=== PATIENT | male | born 1975 | race Caucasian/White ===

== ENCOUNTER → 2017-03-15 | Outpatient (CLI) | payer BC ==
--- NOTE | 2017-03-15 19:03 | ECHOF ---
Referral Reason:R07.9 Chest pain MEASUREMENTS -------- HEIGHT: 172.7 cm WEIGHT: 93.0 kg BP: 144/99 RVIDd: 3.6 cm (< 3.3) IVSd: 1.4 cm (0.6 - 1.1) LVIDd: 4.2 cm (3.9 - 5.3) LVPWd: 1.5 cm (0.6 - 1.1) IVSs: 1.4 cm LVIDs: 3.2 cm LVPWs: 1.7 cm LAESV Index (A-L): 28.44 ml/m Ao Diam: 3.9 cm (2.0 - 3.7) AV Cusp: 1.9 cm (1.5 - 2.6) LA Diam: 3.9 cm (2.7 - 3.8) MV EXCURSION: 19.436 mm (> 18.000) MV EF SLOPE: 99 mm/s (70 - 150) EPSS: 1.1 cm MV E Star: 0.93 m/s MV DecT: 295 ms MV A Star: 0.52 m/s MV E/A Ratio: 1.78 RAP: 5.00 mmHg RVSP: 22.27 mmHg FINDINGS -------- Sinus rhythm. This was a technically good study. The left ventricular size is normal. There is mild concentric left ventricular hypertrophy. Overall left ventricular systolic function is normal with, an EF between 60 - 65 %. The right ventricle is normal in size and function. Normal LA size by volume 22+/-6 ml/m2. The right atrium is normal in size. The aortic valve is trileaflet, and appears structurally normal. No aortic stenosis or regurgitation. The mitral valve is normal. There is trace mitral regurgitation. Trace tricuspid regurgitation present. Right ventricular systolic pressure is normal at < 35 mmHg. There is no evidence of pulmonary hypertension. Trace/mild (physiologic) pulmonic regurgitation. The aortic root size is normal. Normal inferior vena cava with normal inspiratory collapse consistent with estimated right atrial pressure of 5 mmHg. The pericardium is normal. There is no pericardial effusion. CONCLUSIONS -------- 1. Sinus rhythm. 2. Right ventricular systolic pressure is normal at < 35 mmHg. 3. There is no evidence of pulmonary hypertension. 4. Trace/mild (physiologic) pulmonic regurgitation. 5. The aortic root size is normal. 6. There is no pericardial effusion. 7. This was a technically good study. 8. The left ventricular size is normal. 9. There is mild concentric left ventricular hypertrophy. 10. Overall left ventricular systolic function is normal with, an EF between 60 - 65 %. 11. Normal LA size by volume 22+/-6 ml/m2. 12. The aortic valve is trileaflet, and appears structurally normal. No aortic stenosis or regurgitation. 13. There is trace mitral regurgitation. 14. Trace tricuspid regurgitation present. TONNAGE COMPILATION CLERK: Kumar Elizondo RDCS
== END | disposition home or self-care (01) ==
LOC: RADECHMAIN 15:38
PROVIDERS: ATTEND Family Medicine
DX: I08.1 Rheumatic disorders of both mitral and tricuspid valves (principal)
CPT/HCPCS: 36415; 80053; 80061; 84443; 85025; 93306

== ENCOUNTER 2019-03-06 16:19 | Inpatient (IN) | payer BC ==
[2019-03-06] MEDS ORDERED: ACETAMINOPHEN TAB 325 MG TAB PO STA (17:55)
--- NOTE | 2019-03-06 18:23 | ED ---
ENT HPI - General Source: patient Mode of arrival: ambulatory Limitations: no limitations <Mari aE Alaniz - Last Filed: 03/06/19 23:04> <Elvie Queen - Last Filed: 03/10/19 16:13> - General Chief complaint: ENT Stated complaint: Fever, ENT Time Seen by Provider: 03/06/19 17:55 - History of Present Illness Initial comments: 43-year-old male with positive. Past nuchal history presents emergency department for evaluation of sore throat ear pain. Patient states he has had a sore throat since Saturday, he states began at work. Patient states later that night he developed a fever. Patient states that it is painful to swallow. Patient denies any compressive symptoms. Patient states he does not have a cou gh. Patient states he has no real nasal congestion. Patient denies any headache or neck stiffness photophobia. Patient states he does have ear pain bilaterally with right being greater than the left. Patient states when he drinks anything warm increases the pain in the right ear. Patient states that his fever has been greater than 102 for the past 2 days he has been unable to control it with strict medications every 4-6 hours including regimen of a gram of Tylenol and 800 of ibuprofen. Patient states last dose of ibuprofen was at 4:00 PM. Patient denies abdominal pain vomiting diarrhea. Patient denies any other associated complaints. Patient states he is vaccinated denies history of splenectomy or HIV. She states she did present to an outpatient urgent care facility where he is prescribed Augmentin on and has taken a total of 3 doses of Augmentin. Remaining ROS (-). Upon (Maria E Alaniz) - Related Data Previous Rx's Medication Instructions Recorded Amoxic-Pot Clav 875-125Mg 1 tab PO Q12H #10 tab 03/09/19 [Augmentin 875-125] Naproxen [Naprosyn] 250 mg PO BID #10 tab 03/09/19 predniSONE 0 mg PO DIRECTED #10 tab 03/09/19 Allergies Allergy/AdvReac Type Severity Reaction Status Date / Time No Known Allergies Allergy Verified 03/06/19 21:42 Review of Systems ROS Other: All systems not noted in ROS Statement are negative. <Maria E Alaniz - Last Filed: 03/06/19 23:04> ROS Other: All systems not noted in ROS Statement are negative. <Elvie Queen - Last Filed: 03/10/19 16:13> ROS Statement: Those systems with pertinent positive or pertinent negative responses have been documented in the HPI. Past Medical History Past Medical History: No Reported History History of Any Multi-Drug Resistant Organisms: None Reported Past Surgical History: No Surgical Hx Reported Past Psychological History: No Psychological Hx Reported Smoking Status: Current every day smoker Past Alcohol Use History: Daily Past Drug Use History: None Reported <Maria E Alaniz - Last Filed: 03/06/19 23:04> General Exam Limitations: no limitations <Maria E Alaniz - Last Filed: 03/06/19 23:04> - General Exam Comments Initial Comments: General: The patient is awake and alert, in no distress Eye: +3 mm pupils are equal, round and reactive to light, extra-ocular movements are intact. No nystagmus. There is normal conjunctiva bilaterally. No signs of icterus. No photophobia Ears, nose, mouth and throat: There are moist mucous membranes and no oral lesions. Oropharynx was erythematous there is was mild tonsillar enlargement with white plaqie like exudates no lesions Uvula midline, enlarged erythematous with exudates. Tympanic membranes are not erythematous or is no effusions bulging or retraction. No tenderness to palpation of the mastoid. No anterior cervical lymphadenopathy. Rhinorrhea, clear and bilateral nares. No tripoding, no drooling. Neck: The neck is supple, there is no tenderness or JVD. No nuchal rigidity Cardiovascular: There is a regular rate and rhythm. No murmur, rub or gallop is appreciated. Respiratory: Lungs are clear to auscultation, respirations are non-labored, breath sounds are equal. No wheezes, stridor, rales, or rhonchi. No retractions or abdominal breathing. Gastrointestinal: Soft, non-distended, non-tender abdomen without masses or organomegaly noted. There is no rebound or guarding present. Bowel sounds are unremarkable. Musculoskeletal: Normal ROM, no tenderness. Strength 5/5. Sensation intact. Radial pulses equal bilaterally 2+. Neurological: A&O x 3. CN II-XII intact grossly, There are no obvious motor or sensory deficits. Coordination appears grossly intact. Speech appears normal, no muffling. Skin: Skin is warm and dry and no rashes or lesions are noted. No extremity edema Psychiatric: Cooperative (Maria E Alaniz) Course Vital Signs 03/06/19 03/06/19 03/06/19 16:35 20:46 23:00 Temperature 101.5 F H 101.9 F H 98.0 F Pulse Rate 84 81 Pulse Rate [ 75 Supine Pulse Oximetery] Respiratory 18 20 18 Rate Blood Pressure 148/87 119/65 Blood Pressure 137/68 [Right Arm Supine] O2 Sat by Pulse 99 97 96 Oximetry Medical Decision Making - Lab Data Result diagrams: 03/06/19 18:30 03/06/19 18:30 <Maria E Alaniz - Last Filed: 03/06/19 23:04> - Lab Data Result diagrams: 03/08/19 07:11 03/06/19 18:30 <Elvie Queen - Last Filed: 03/10/19 16:13> - Medical Decision Making 43-year-old male presents emergency department for evaluation of sore throat, high fevers at home. Patient states he has had extreme pain with swallowing for the past 2 days. Patient states that he also has had ear pain. Patient states she has taken a total of 3 doses of Augmentin. Patient states despite antipyretic therapy at home he has had elevated temperature. Patient denies any neck pain or stiffness. Patient is no nuchal irritation signs and examination. Patient does have extensive tonsillar and uvular exudates. He has evidence of uvulitis on PE. Rapid strep testing, Heterophile testing negative. Influenza negative. Chest x-ray clear. Patient's E stays revealed mild leukocytosis. CT of soft tissues neck revealed lymphadenopathy however no apparent fluid collections consistent with abscess. Airway is maintained. Patient has no tripoding or drooling and is tolerating secretions of physical examination. Patient was evaluated in person by attending provider Dr. Queen who recommends admission with IV abx and ENT evaluation. Patient does not appear overtly toxic or septic at this time. Patient was started on Zosyn per admitting provider recommendations, ENT on consult. No further instruction. Patient agreeable with admission. Transferred to floor in stable condition. (Maria E Alaniz) I was available for consultation in the emergency department. The history and physical exam were done by the midlevel provider. I was consulted for this patients care. I reviewed the case with the midlevel provider and based on their presentation of the patient, I agree with the assessment, medical decision making and plan of care as documented. I evaluated the patient myself. Due to outpatient treatment failure, I recommended hospital admission. I discussed the case with Dr. Ladd who accepted admission. Chart was dictated using [employer] dictation software. Attempts were made to correct any dictation errors however some typographical errors may persist. (Elvie Queen) - Lab Data Lab Results 03/06/19 03/06/19 03/06/19 Range/Units 18:30 18:30 18:30 WBC 12.9 H (3.8-10.6) k/uL RBC 4.43 (4.30-5.90) m/uL Hgb 14.1 (13.0-17.5) gm/dL Hct 43.3 (39.0-53.0) % MCV 97.8 (80.0-100.0) fL MCH 31.8 (25.0-35.0) pg MCHC 32.5 (31.0-37.0) g/dL RDW 13.0 (11.5-15.5) % Plt Count 164 (150-450) k/uL Neutrophils % 86 % Lymphocytes % 6 % Monocytes % 4 % Eosinophils % 1 % Basophils % 1 % Neutrophils # 11.0 H (1.3-7.7) k/uL Lymphocytes # 0.8 L (1.0-4.8) k/uL Monocytes # 0.6 (0-1.0) k/uL Eosinophils # 0.1 (0-0.7) k/uL Basophils # 0.1 (0-0.2) k/uL Macrocytosis Sodium 139 (137-145) mmol/L Potassium 4.4 (3.5-5.1) mmol/L Chloride 103 (98-107) mmol/L Carbon Dioxide 24 (22-30) mmol/L Anion Gap 12 mmol/L BUN 10 (9-20) mg/dL Creatinine 0.92 (0.66-1.25) mg/dL Est GFR (CKD-EPI)AfAm >90 (>60 ml/min/1.73 sqM) Est GFR (CKD-EPI)NonAf >90 (>60 ml/min/1.73 sqM) Glucose 102 H (74-99) mg/dL Plasma Lactic Acid Jeffrey (0.7-2.0) mmol/L Calcium 9.4 (8.4-10.2) mg/dL Total Bilirubin 0.7 (0.2-1.3) mg/dL AST 30 (17-59) U/L ALT 42 (21-72) U/L Alkaline Phosphatase 62 (38-126) U/L Total Protein 7.7 (6.3-8.2) g/dL Albumin 4.7 (3.5-5.0) g/dL Heterophile Antibody Negative (Negative) Influenza Type A RNA (Not Detectd) Influenza Type B (PCR) (Not Detectd) Group A Strep Rapid (Negative) 03/06/19 03/06/19 03/08/19 Range/Units 18:30 18:30 07:11 WBC 7.2 (3.8-10.6) k/uL RBC 3.96 L (4.30-5.90) m/uL Hgb 12.7 L (13.0-17.5) gm/dL Hct 40.4 (39.0-53.0) % MCV 101.9 H (80.0-100.0) fL MCH 32.0 (25.0-35.0) pg MCHC 31.4 (31.0-37.0) g/dL RDW 12.8 (11.5-15.5) % Plt Count 191 (150-450) k/uL Neutrophils % 84 % Lymphocytes % 12 % Monocytes % 3 % Eosinophils % 0 % Basophils % 0 % Neutrophils # 6.1 (1.3-7.7) k/uL Lymphocytes # 0.9 L (1.0-4.8) k/uL Monocytes # 0.2 (0-1.0) k/uL Eosinophils # 0.0 (0-0.7) k/uL Basophils # 0.0 (0-0.2) k/uL Macrocytosis Slight Sodium (137-145) mmol/L Potassium (3.5-5.1) mmol/L Chloride (98-107) mmol/L Carbon Dioxide (22-30) mmol/L Anion Gap mmol/L BUN (9-20) mg/dL Creatinine (0.66-1.25) mg/dL Est GFR (CKD-EPI)AfAm (>60 ml/min/1.73 sqM) Est GFR (CKD-EPI)NonAf (>60 ml/min/1.73 sqM) Glucose (74-99) mg/dL Plasma Lactic Acid Jeffrey 0.8 (0.7-2.0) mmol/L Calcium (8.4-10.2) mg/dL Total Bilirubin (0.2-1.3) mg/dL AST (17-59) U/L ALT (21-72) U/L Alkaline Phosphatase (38-126) U/L Total Protein (6.3-8.2) g/dL Albumin (3.5-5.0) g/dL Heterophile Antibody (Negative) Influenza Type A RNA Not Detected (Not Detectd) Influenza Type B (PCR) Not Detected (Not Detectd) Group A Strep Rapid Negative (Negative) Disposition Is patient prescribed a controlled substance at d/c from ED?: No Time of Disposition: 21:19 Decision to Admit Reason: Admit from EC Decision Date: 03/06/19 Decision Time: 21:19 <Maria E Alaniz - Last Filed: 03/06/19 23:04> <Elvie Queen - Last Filed: 03/10/19 16:13> Clinical Impression: Pharyngitis, Uvulitis, Fever Disposition: ADMITTED IP TO THIS HOSP Condition: Stable
[2019-03-06 18:41] LABS: Basophils # (A) 0.1 k/uL (0-0.2); Basophils % (A) 1 %; Eosinophils # (A) 0.1 k/uL (0-0.7); Eosinophils % (A) 1 %; HCT 43.3 % (39.0-53.0); HGB 14.1 gm/dL (13.0-17.5); Lymphocytes # (A) 0.8 k/uL (1.0-4.8); Lymphocytes % (A) 6 %; MCH 31.8 pg (25.0-35.0); MCHC 32.5 g/dL (31.0-37.0); MCV 97.8 fL (80.0-100.0); Mean Platelet Volume 8.1; Monocytes # (A) 0.6 k/uL (0-1.0); Monocytes % (A) 4 %; Neutrophils % (A) 86 %; Platelet Count 164 k/uL (150-450); RBC 4.43 m/uL (4.30-5.90); WBC 12.9 k/uL (3.8-10.6)
[2019-03-06 18:51] LABS: ALT 42 U/L (21-72); AST 30 U/L (17-59); African American GFR (CKD) >90 (>60 ml/min/1.73 sqM); Albumin 4.7 g/dL (3.5-5.0); Alkaline Phosphatase 62 U/L (38-126); Anion Gap 12 mmol/L; Blood Urea Nitrogen 10 mg/dL (9-20); Calcium 9.4 mg/dL (8.4-10.2); Carbon Dioxide 24 mmol/L (22-30); Chloride 103 mmol/L (98-107); Glucose 102 mg/dL (74-99); Potassium 4.4 mmol/L (3.5-5.1); Sodium 139 mmol/L (137-145); Total Bilirubin 0.7 mg/dL (0.2-1.3); Total Protein 7.7 g/dL (6.3-8.2)
--- NOTE | 2019-03-06 19:33 | XR ---
EXAMINATION TYPE: XR chest 2V DATE OF EXAM: 03/06/2019 COMPARISON: 05/19/2014 HISTORY: Fever and sore throat TECHNIQUE: Frontal and lateral views of the chest are obtained. FINDINGS: Heart and mediastinum are normal. Lungs are clear. Diaphragm is normal. Bony thorax appear s normal. IMPRESSION: Normal chest. No change.
--- NOTE | 2019-03-06 19:37 | CT ---
EXAMINATION TYPE: CT soft tissue neck w con DATE OF EXAM: 03/06/2019 7:26 PM COMPARISON: None HISTORY: Neck swelling, pain and fever CT DLP: 322.2 mGycm Automated exposure control for dose reduction was used. CONTRAST: CT scan of the neck is performed following with IV Contrast, patient injected with 100 mL of Isovue 3 00. Axial images are obtained, coronal and sagittal reformatted images are reviewed. FINDINGS: There is normal branching pattern of the great vessels on the aortic arch. Thyroid gland appears norm al. Visualized trachea appears normal. Epiglottis is normal. The tongue appears normal. The tonsils and adenoids are within normal limits. The parotid glands are symmetric. Submandibular sa livary glands are symmetric. There are multiple enlarged anterior triangle cervical lymph nodes that measure up to 1.4 cm in greatest dimension. There is normal contrast opacification of the carotid art eries and jugular veins and vertebral arteries. I see no pathologic fluid collection. There are scatt ered posterior triangle cervical lymph nodes that measure up to 9 mm in greatest dimension. There is no evidence of an abscess. IMPRESSION: There are nonspecific anterior and posterior triangle bilateral cervical lymph nodes. No evidence of an abscess.
[2019-03-06] MEDS ORDERED: DEXAMETHASONE SOD PHOSPHATE 4 MG/ML 1 ML VIAL IV STA (19:40)
[2019-03-06] MEDS ORDERED: SODIUM CHLORIDE 0.9% 1,000 ML IV ONE (20:12)
[2019-03-06] MEDS ORDERED: PIPERACILLIN-TAZOBACTAM 3.375 GM in SODIUM CHLORIDE 0.9% 100 ML IVPB STA (21:18)
[2019-03-06] MEDS ORDERED: NYSTATIN 100,000 UNIT/ML SUSP 500,000 UNIT/5 ML CUP PO STA (21:20)
[2019-03-06] MEDS ORDERED: ACETAMINOPHEN TAB 325 MG TAB PO PRN (21:43)
[2019-03-06] MEDS ORDERED: NALOXONE 0.4 MG/ML 1 ML VIAL IV PRN (21:43)
[2019-03-06] MEDS: KETOROLAC 30 MG/ML 1 ML VIAL IVP PRN (23:10)
[2019-03-06] MEDS: SODIUM CHLORIDE 0.9% 1,000 ML IV SCH (23:23)
[2019-03-07] MEDS: KETOROLAC 30 MG/ML 1 ML VIAL IVP PRN ×2 (08:19→15:09)
[2019-03-07] MEDS: SODIUM CHLORIDE 0.9% 1,000 ML IV SCH ×2 (08:21→16:19)
[2019-03-07] MEDS ORDERED: NYSTATIN 100,000 UNIT/ML SUSP 500,000 UNIT/5 ML CUP PO SCH (09:00)
[2019-03-07] MEDS ORDERED: PIPERACILLIN-TAZOBACTAM 3.375 GM in SODIUM CHLORIDE 0.9% 100 ML IVPB SCH (09:00)
[2019-03-07] MEDS: PIPERACILLIN-TAZOBACTAM 3.375 GM in SODIUM CHLORIDE 0.9% 100 ML IVPB SCH ×2 (10:34→15:08)
--- NOTE | 2019-03-07 15:49 | P.HPIM ---
History of Present Illness H&P Date: 03/07/19 Chief Complaint: Sort throat History of presenting complaint: This is a pleasant 43-year-old patient of Dr. Jennings. 4 days ago started off with a sore throat. Progress to get worse. Started having high fevers chills. That started having symptoms and blockage feeling and pain in both the ears. Started fighting get difficult to swallow. Decided to come in. In the ER p harynx was found to be rather inflamed with exudates. I ordered IV Zosyn and IV Solu-Medrol. Patient otherwise in good health. His other active. Denies any chronic medical conditions. No unusual sexual practices. Feeling better since receiving the IV Zosyn and Solu-Medrol. ENT was consulted. Review of systems: GEN.: Fever and chills EYES: None HEENT: As above NECK: None RESPIRATORY: None CARDIOVASCULAR: None GASTROINTESTINAL: None GENITOURINARY: None MUSCULOSKELETAL: None LYMPHATICS: None HEMATOLOGICAL: None PSYCHIATRY: None NEUROLOGICAL: None Past medical history to include: Diverticulosis Social history: Smokes a pack a day for close to 28 years. Drinks 2 beers at night. Lives by himself. 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 Family history: Possible heart disease Physical examination: VITAL SIGNS: 101.5, 84, 18, 148/87, 99% room air-upon presentation GENERAL: Average built, sitting up, comfortable. EYES: Pupils equal. Conjunctiva normal. HEENT: External appearance of nose and ears normal, pharynx is inflamed with enlarged uvula and crowding, with white exudates. NECK: JVD not raised; masses not palpable. HEART: First and second heart sounds are normal; no edema. LUNGS: Respiratory rate normal; clear to auscultation. ABDOMEN: Soft, nontender, liver spleen not palpable, no masses palpable. PSYCH: Alert and oriented x3; mood and affect normal. NEUROLOGICAL: Cranial nerves grossly intact; no facial asymmetry, power and sensation grossly intact. LYMPHATICS: Submandibular lymph nodes palpable INVESTIGATIONS, reviewed in the clinical context: White count 12.9 hemoglobin 14.1 platelets 164 Potassium 4.4 creatinine 0.9 to Influenza A and B- group A strep rapid negative Heterophil antibody negative Assessment: -Acute severe exudative pharyngitis, likely bacterial causing sepsis -Acute severe odynophagia from above -Chronic nicotine dependence patient cigarette smoker -Colonic diverticulosis, asymptomatic Plan: Patient started and IV Zosyn. IV Solu-Medrol. Told to avoid extremes of fluid temperatures that is very cold or hot. Also to do saltwater warm gargle. ENT was consulted. Care was discussed with the patient. Questions were answered. Advised against smoking. Lovenox for DVT prophylaxis. Past Medical History Past Medical History: No Reported History Additional Past Medical History / Comment(s): Patient states he had a CT that showed diverticulosis History of Any Multi-Drug Resistant Organisms: None Reported Past Surgical History: No Surgical Hx Reported Past Anesthesia/Blood Transfusion Reactions: No Reported Reaction Past Psychological History: No Psychological Hx Reported Smoking Status: Current every day smoker Past Alcohol Use History: Daily Past Drug Use History: None Reported - Past Family History Father Family Medical History: No Reported History Additional Family Medical History / Comment(s): Possibly heart stents Mother Family Medical History: Diabetes Mellitus, Hypertension Brother(s) Family Medical History: Myocardial Infarction ([place]) Additional Family Medical History / Comment(s): Had heart attack at 39 Medications and Allergies Home Medications Medication Instructions Recorded Confirmed Type Amoxic-Pot Clav 875-125Mg 1 tab PO Q12H 03/06/19 03/06/19 History [Augmentin 875-125] Ibuprofen [Motrin] 600 mg PO Q8HR PRN 03/06/19 03/06/19 History Allergies Allergy/AdvReac Type Severity Reaction Status Date / Time No Known Allergies Allergy Verified 03/06/19 21:42 Physical Exam Vitals: Vital Signs Temp Pulse Pulse Resp BP BP Pulse Ox 03/07/19 05:00 96.9 F L 56 L 18 143/81 100 03/07/19 00:00 18 03/06/19 23:00 98.0 F 75 18 137/68 96 03/06/19 20:46 101.9 F H 81 20 119/65 97 03/06/19 16:35 101.5 F H 84 18 148/87 99 Intake and Output 03/06/19 03/07/19 03/07/19 22:59 06:59 14:59 Intake Total 2300 Balance 2300 Intake: Amount of Fluid Infused ( 1800 ml) Oral 500 Other: # Voids 1 Weight 83.915 kg Results CBC & Chem 7: 03/06/19 18:30 03/06/19 18:30 Labs: Abnormal Lab Results - Last 24 Hours (Table) 03/06/19 03/06/19 Range/Units 18:30 18:30 WBC 12.9 H (3.8-10.6) k/uL Neutrophils # 11.0 H (1.3-7.7) k/uL Lymphocytes # 0.8 L (1.0-4.8) k/uL Glucose 102 H (74-99) mg/dL Microbiology - Last 24 Hours (Table) 03/06/19 18:30 Group A Strep Throat Culture - Preliminary Throat Thrombosis Risk Factor Assmnt - Choose All That Apply Any of the Below Risk Factors Present?: Yes Each Factor Represents 1 point: Age 41-60 years, Obesity (BMI >25) Thrombosis Risk Factor Assessment Total Risk Factor Score: 2 Thrombosis Risk Factor Assessment Level: Low Risk
[2019-03-07] MEDS: ENOXAPARIN 40 MG/0.4 ML SYRINGE SQ SCH (16:18)
[2019-03-07] MEDS ORDERED: predniSONE 20 MG TAB PO STA (23:44)
[2019-03-08] MEDS: PIPERACILLIN-TAZOBACTAM 3.375 GM in SODIUM CHLORIDE 0.9% 100 ML IVPB SCH ×4 (00:27→23:29)
[2019-03-08] MEDS: SODIUM CHLORIDE 0.9% 1,000 ML IV SCH ×3 (05:28→23:34)
[2019-03-08 07:42] LABS: Basophils % (A) 0 %; Eosinophils % (A) 0 %; HCT 40.4 % (39.0-53.0); HGB 12.7 gm/dL (13.0-17.5); Lymphocytes # (A) 0.9 k/uL (1.0-4.8); Lymphocytes % (A) 12 %; MCHC 31.4 g/dL (31.0-37.0); MCV 101.9 fL (80.0-100.0); Macrocytosis Slight; Monocytes # (A) 0.2 k/uL (0-1.0); Monocytes % (A) 3 %; Neutrophils # (A) 6.1 k/uL (1.3-7.7); Neutrophils % (A) 84 %; Platelet Count 191 k/uL (150-450); RBC 3.96 m/uL (4.30-5.90); RDW 12.8 % (11.5-15.5); WBC 7.2 k/uL (3.8-10.6)
[2019-03-08] MEDS ORDERED: DEXAMETHASONE SOD PHOSPHATE 10 MG/ML 1 ML VIAL IV ONE (08:00)
--- NOTE | 2019-03-08 08:37 | CONS ---
CONSULTATION DATE OF ADMISSION: 03/06/2019 DATE OF CONSULTATION: 03/07/2019 REASON FOR CONSULTATION: Uvulitis, pharyngitis, tonsillar exudate. HISTORY OF PRESENT ILLNESS: This patient is a very pleasant 43-year-old male who was admitted via the [facility] Emergency Room to the hospital for definitive care. The patient states that approximately 2-3 days prior to his admission he developed a moderate sore throat. The pain was on both sides and became progressively worse. Eventually the patient had difficulty swallowing and the pain radiated into both ears. He was seen by someone at one of the urgent care centers and was placed on Augmentin tablets 875 mg b.i.d. for 10 days. The patient states that although he had significant difficulty swallowing the tablets, he was able to swallow them, but they seemed to make no difference in his symptoms. His symptoms continued to progress and subsequently he presented at the [facility] Emergency Room and was seen by an ER physician. He was diagnosed with uvulitis, pharyngitis and tonsillar exudate. The patient was given 3 grams of Zosyn and 10 mg of dexamethasone, both given IV and he was subsequently admitted for further treatment and consultation. At the time that I saw the patient he was in no acute distress and was feeling much better after 24 hours of antibiotics. PAST MEDICAL HISTORY: Reveals patient has no known allergies to medications. He is not currently on any medications. He states he smokes approximately 1 pack plus of cigarettes per day and was advised to quit for obvious health reasons. There is no history of asthma, diabetes mellitus or hypertension. REVIEW OF SYSTEMS: Review of systems is noncontributory. PHYSICAL EXAMINATION: This patient is a 43-year-old male who is alert, cooperative and well-oriented to time and place. HEENT examination: Patient is normocephalic. Tympanic membranes are normal. Middle ear spaces are free of any fluid or infection. Pupils equal, round, and reactive to light and accommodation. Conjunctivae are clear. Intranasal examination reveals moderate to severe septal deviation to the right with compensatory hypertrophy of the inferior turbinates bilaterally. There is a moderate amount of clear mucus on the mucous membranes and draining down the posterior pharynx. Examination of the oropharynx at this time reveals 2 to 3+ tonsillar hypertrophy with no evidence of tonsillar debris in the tonsillar crypts at this time. In addition, there is no evidence of any significant tonsillar exudate. The uvula is in the midline and appears to be normal. Most of the soft tissue swelling of the soft palate has resolved. Palpation of the neck reveals no evidence of lymphadenopathy or neck masses. Cranial nerves 2 through 12 and the remainder of the head and neck exam are within normal limits. CHEST/CARDIOVASCULAR: Both lung villalobos are clear to percussion and auscultation. The patient is in regular sinus rhythm. S1 and S2 are present without evidence of any murmurs, S3s or S4s. Peripheral pulses are bilaterally symmetrical and within normal limits. The remainder of the physical exam is essentially unremarkable. IMPRESSION: Exudative tonsillitis with uvular involvement, no airway obstruction or distress. PLAN: The patient will be continued on Zosyn 3 g q.8 hours. The patient states that this is the first episode of tonsillitis that he has ever had in his life and therefore he is not a candidate for tonsillectomy at this time. The hospital course was essentially unremarkable and the patient responded quite well to antibiotic and fluid therapy. PLAN: The patient can be discharged at any time by the primary physician. I have advised him to complete the 10 day course of Augmentin tablets that he already has present. In addition to this, there is no restriction in his activity, work or diet. I have cautioned the patient that it will take several more days for his symptoms to completely resolve but he should still complete the 10 day course of antibiotics. It is normal for exudative tonsillitis to involve the soft palate and the uvula. The patient can be discharged in the a.m. and I will not need to see him for followup in my office at this time. I have advised nursing staff to make sure that the patient gets his dose of Zosyn in the morning along with 10 mg of Decadron IV prior to being discharged. I want to take this opportunity to thank you for allowing me to assist you in the care of your patient. If I can be of any further assistance, please feel free to call my office. MMODL / IJN: [id number] / MTDD
[2019-03-08] MEDS: ENOXAPARIN 40 MG/0.4 ML SYRINGE SQ SCH (08:39)
--- NOTE | 2019-03-08 16:46 | P.PN ---
Progress Note - Text Progress Note Date: 03/08/19 Chief Complaint: Sore throat Interval history: This is a pleasant 43-year-old patient of Dr. Jennings. 4 days ago started off with a sore throat. Progress to get worse. Started having high fevers chills. That started having symptoms and blockage feeling and pain in both the ears. Started fighting get difficult to swallow. Decided to come in. In the ER pharynx was found to be rather inflamed with exudates. I ordered IV Zosyn and IV Solu-Medrol. Patient otherwise in good health. His other active. Denies any chronic medical conditions. No unusual sexual practices. Feeling better since receiving the IV Zosyn and Solu-Medrol. ENT was consulted. Today-throat feels a bit better. Able to tolerate some diet. Still painful. No fever no chills. Getting IV Zosyn. Review of systems: Was done for constitutional, cardiovascular, GI, pulmonary. relevant finding as above Active Medications Acetaminophen (Tylenol Tab) 650 mg PO Q6HR PRN PRN Reason: Mild Pain or Fever > 100.5 Enoxaparin Sodium (Lovenox) 40 mg SQ DAILY [facility] Last Admin: 03/08/19 08:39 Dose: Not Given Documented by: Sodium Chloride (Saline 0.9%) 1,000 mls @ 100 mls/hr IV .Q10H [facility] Last Admin: 03/08/19 13:38 Dose: Not Given Documented by: Piperacillin Sod/Tazobactam (Sod 3.375 gm/ Sodium Chloride) 100 mls @ 25 mls/hr IVPB Q8HR [facility] Last Admin: 03/08/19 08:38 Dose: 25 mls/hr Documented by: Ketorolac Tromethamine (Toradol) 30 mg IVP Q6HR PRN PRN Reason: Moderate Pain Stop: 03/11/19 21:44 Last Admin: 03/07/19 15:09 Dose: 30 mg Documented by: Naloxone HCl (Narcan) 0.2 mg IV Q2M PRN PRN Reason: Opioid Reversal Physical examination: VITAL SIGNS: Afebrile, 74, 20, 138/86, 97% room air GENERAL: Sitting up in a chair. More comfortable. EYES: Pupils equal. Conjunctiva normal. HEENT: External appearance of nose and ears normal, pharynx is a bit less inflamed with enlarged uvula and crowding, with white exudates a bit less. NECK: JVD not raised; masses not palpable. HEART: First and second heart sounds are normal; no edema. LUNGS: Respiratory rate normal; clear to auscultation. ABDOMEN: Soft, nontender, liver spleen not palpable, no masses palpable. PSYCH: Alert and oriented x3; mood and affect normal. INVESTIGATIONS, reviewed in the clinical context: White count 7.2 Admission testing: White count 12.9 hemoglobin 14.1 platelets 164 Potassium 4.4 creatinine 0.9 to Influenza A and B- group A strep rapid negative Heterophil antibody negative Assessment: -Acute severe exudative pharyngitis, likely bacterial causing sepsis, improving -Acute severe odynophagia from above -Chronic nicotine dependence patient cigarette smoker -Colonic diverticulosis, asymptomatic Plan: Patient is improving. To like to give another 24 hours of IV antibiotics. Based on the clinical findings. Discussed with the patient. Told him to do warm water with salt gargles. She will be discharged tomorrow morning. Another 24 hours of steroids to
[2019-03-08] MEDS: methylPREDNISolone SOD SUCCI 40 MG/ML 1 ML VIAL IV SCH ×2 (16:59→23:33)
[2019-03-09] MEDS: methylPREDNISolone SOD SUCCI 40 MG/ML 1 ML VIAL IV SCH (08:04)
[2019-03-09] MEDS: PIPERACILLIN-TAZOBACTAM 3.375 GM in SODIUM CHLORIDE 0.9% 100 ML IVPB SCH (08:04)
[2019-03-09] MEDS: ENOXAPARIN 40 MG/0.4 ML SYRINGE SQ SCH (08:05)
[2019-03-09] MEDS: SODIUM CHLORIDE 0.9% 1,000 ML IV SCH (08:06)
[2019-03-09 12:47] VITALS: BP 125/75; PULSE 51; RESP 16; TEMP 98.4
--- NOTE | 2019-03-09 23:21 | P.DS ---
Providers Date of admission: 03/09/19 10:24 Expected date of discharge: 03/09/19 Attending physician: Nikos Ladd Consults: 03/06/19 21:44 Consult Physician Routine Consulting Provider: Tuan Hart Consult Reason/Comments: pharyngitis, uvulitis Do you want consulting provider notified?: Yes, Notify in am Primary care physician: Nicholas Jennings [facility] Course: Chief Complaint: Sore throat Hospital course: This is a pleasant 43-year-old patient of Dr. Jennings. 4 days ago started off with a sore throat. Progress to get worse. Started having high fevers chills. That started having symptoms and blockage feeling and pain in both the ears. Started fighting get difficult to swallow. Decided to come in. In the ER pharynx was found to be rather inflamed with exudates. I ordered IV Zosyn and IV Solu-Medrol. Patient otherwise in good health. His other active. Denies any chronic medical conditions. No unusual sexual practices. Feeling better since receiving the IV Zosyn and Solu-Medrol. ENT was consulted. Admitted with superior to have severe pharyngitis. Responded well to the above treatment. Doing much better the day of discharge. Greatly improved. Care was discussed with the patient today questions were answered. Consultation: Dr. Tuan Hart from ENT Physical examination: VITAL SIGNS: Afebrile, 51, 16, 1 25 x 75, 98% room air GENERAL: Sitting up in a chair. More comfortable. EYES: Pupils equal. Conjunctiva normal. HEENT: Pharynx appears greatly improved. Redness much decreased. Exudates all disappeared.. NECK: JVD not raised; masses not palpable. HEART: First and second heart sounds are normal; no edema. LUNGS: Respiratory rate normal; clear to auscultation. ABDOMEN: Soft, nontender, liver spleen not palpable, no masses palpable. PSYCH: Alert and oriented x3; mood and affect normal. INVESTIGATIONS, reviewed in the clinical context: White count 7.2 Admission testing: White count 12.9 hemoglobin 14.1 platelets 164 Potassium 4.4 creatinine 0.9 to Influenza A and B- group A strep rapid negative Heterophil antibody negative Discharge diagnosis: -Acute severe exudative pharyngitis, likely bacterial causing sepsis, POA -Acute severe odynophagia from above -Chronic nicotine dependence patient cigarette smoker -Colonic diverticulosis, asymptomatic Plan: Discharged home Patient Condition at Discharge: Stable Plan - Discharge Summary New Discharge Prescriptions: New Naproxen [Naprosyn] 250 mg PO BID #10 tab predniSONE 0 mg PO DIRECTED #10 tab Continue Amoxic-Pot Clav 875-125Mg [Augmentin 875-125] 1 tab PO Q12H #10 tab Discontinued Ibuprofen [Motrin] 600 mg PO Q8HR PRN PRN Reason: Pain Discharge Medication List Amoxic-Pot Clav 875-125Mg [Augmentin 875-125] 1 tab PO Q12H #10 tab 03/09/19 [Rx] Naproxen [Naprosyn] 250 mg PO BID #10 tab 03/09/19 [Rx] predniSONE 0 mg PO DIRECTED #10 tab 03/09/19 [Rx] Follow up Appointment(s)/Referral(s): Nicholas Jennings DO [Primary Care Provider] - 03/12/19 10:30 am Patient Instructions/Handouts: Tonsillitis (DC) Activity/Diet/Wound Care/Special Instructions: activity as tolerated soft diet as tolerated warm salt water gargle PRN Discharge Disposition: HOME SELF-CARE
== END 2019-03-09 14:01 | disposition home or self-care (01) | DRG 872 ==
LOC: EC 16:19 → 4MS4W 21:18 → OBSVTOIN 03-09 10:24
PROVIDERS: ADMIT Hospitalist; ATTEND Hospitalist
DX: A41.9 Sepsis, unspecified organism (principal); R13.10 Dysphagia, unspecified; K57.30 Diverticulosis of large intestine without perforation or abscess without bleeding; J02.9 Acute pharyngitis, unspecified; F17.210 Nicotine dependence, cigarettes, uncomplicated; Z82.49 Family history of ischemic heart disease and other diseases of the circulatory system; Z83.3 Family history of diabetes mellitus
CPT/HCPCS: 36415; 70491; 71046; 80053; 83605; 85025; 86308; 87040; 87081; 87430; 87502; 96361; 96365; 96375; 99285

== ENCOUNTER 2021-02-16 18:32 | Observation (INO) | payer BC ==
[2021-02-16 19:21] LABS: Basophils % (A) 0 %; Eosinophils # (A) 0.2 k/uL (0-0.7); Eosinophils % (A) 3 %; HCT 39.6 % (39.0-53.0); HGB 13.7 gm/dL (13.0-17.5); Lymphocytes # (A) 1.9 k/uL (1.0-4.8); Lymphocytes % (A) 23 %; MCH 33.1 pg (25.0-35.0); MCHC 34.7 g/dL (31.0-37.0); MCV 95.6 fL (80.0-100.0); Mean Platelet Volume 9.8; Monocytes # (A) 0.4 k/uL (0-1.0); Monocytes % (A) 5 %; Neutrophils # (A) 5.6 k/uL (1.3-7.7); Neutrophils % (A) 68 %; Platelet Count 172 k/uL (150-450); RBC 4.15 m/uL (4.30-5.90); RDW 12.5 % (11.5-15.5); WBC 8.2 k/uL (3.8-10.6)
--- NOTE | 2021-02-16 19:29 | ED ---
General Adult HPI - General Chief complaint: Chest Pain Stated complaint: Chest Pain Time Seen by Provider: 02/16/21 18:35 Source: patient, RN notes reviewed, old records reviewed Mode of arrival: ambulatory Limitations: no limitations - History of Present Illness Initial comments: This is a 45-year-old male who presents emergency Department complaining of chest pain for 3 days. Patient states the left-sided chest radiates to his upper left back. Patient states he is a heavy smoker has high cholesterol might have high blood pressure but is not currently treated for. Patient also states he has a younger brother who is 42 and he has had 2 heart attacks. Patient states that there is some shortness of breath but no diaphoretic episode no nausea. Patient denies any lightheadedness or dizziness. Patient denies headache patient denies numbness weakness. Patient denies abdominal pain patient denies nausea vomiting or diarrhea. - Related Data Home Medications Medication Instructions Recorded Confirmed Atorvastatin Calcium [Lipitor] 40 mg PO HS 02/16/21 02/16/21 Fenofibrate [Lofibra] 160 mg PO HS 02/16/21 02/16/21 Omeprazole 20 mg PO HS 02/16/21 02/16/21 Allergies Allergy/AdvReac Type Severity Reaction Status Date / Time No Known Allergies Allergy Verified 02/16/21 19:43 Review of Systems ROS Statement: Those systems with pertinent positive or pertinent negative responses have been documented in the HPI. ROS Other: All systems not noted in ROS Statement are negative. Past Medical History Past Medical History: No Reported History Additional Past Medical History / Comment(s): Patient states he had a CT that showed diverticulosis History of Any Multi-Drug Resistant Organisms: None Reported Past Surgical History: No Surgical Hx Reported Past Anesthesia/Blood Transfusion Reactions: No Reported Reaction Past Psychological History: No Psychological Hx Reported Past Alcohol Use History: Daily Past Drug Use History: None Reported - Past Family History Father Family Medical History: No Reported History Additional Family Medical History / Comment(s): Possibly heart stents Mother Family Medical History: Diabetes Mellitus, Hypertension Brother(s) Family Medical History: Myocardial Infarction ([place]) Additional Family Medical History / Comment(s): Had heart attack at 39 General Exam - General Exam Comments Initial Comments: GENERAL: Patient is well-developed and well-nourished. Patient is nontoxic and well- hydrated and is in mild distress. ENT: Neck is soft and supple. No significant lymphadenopathy is noted. Oropharynx is clear. Moist mucous membranes. Neck has full range of motion without eliciting any pain. EYES: The sclera were anicteric and conjunctiva were pink and moist. Extraocular movements were intact and pupils were equal round and reactive to light. Eyelids were unremarkable. PULMONARY: Unlabored respirations. Good breath sounds bilaterally. No audible rales rhonchi or wheezing was noted. CARDIOVASCULAR: There is a regular rate and rhythm without any murmurs gallops or rubs. ABDOMEN: Soft and nontender with normal bowel sounds. SKIN: Skin is clear with no lesions or rashes and otherwise unremarkable. NEUROLOGIC: Patient is alert and oriented x3. Cranial nerves II through XII are grossly intact. Motor and sensory are also intact. Normal speech, volume and content. Symmetrical smile. MUSCULOSKELETAL: Normal extremities with adequate strength and full range of motion. LYMPHATICS: No significant lymphadenopathy is noted PSYCHIATRIC: Normal psychiatric evaluation. Limitations: no limitations Course Vital Signs 02/16/21 02/16/21 02/16/21 18:37 20:00 20:08 Temperature 98.1 F Pulse Rate 77 72 75 Respiratory 18 18 18 Rate Blood Pressure 173/98 157/95 147/96 O2 Sat by Pulse 97 95 96 Oximetry Medical Decision Making - Medical Decision Making EKG shows sinus rhythm at 74 bpm MI interval 210 QRS is 94 QT interval 416 QTC is 461 per patient's EKG shows no ST segment elevation or depression. Chest x-ray shows no acute abnormality Patient took nitroglycerin he stated that the chest pressure was much improved. I spoke with history of his possible sacral to admit the patient admitted the patient I wrote admitting orders. - Lab Data Result diagrams: 02/16/21 19:12 02/16/21 19:12 Lab Results 02/16/21 02/16/21 02/16/21 Range/Units 19:12 19:12 19:12 WBC 8.2 (3.8-10.6) k/uL RBC 4.15 L (4.30-5.90) m/uL Hgb 13.7 (13.0-17.5) gm/dL Hct 39.6 (39.0-53.0) % MCV 95.6 (80.0-100.0) fL MCH 33.1 (25.0-35.0) pg MCHC 34.7 (31.0-37.0) g/dL RDW 12.5 (11.5-15.5) % Plt Count 172 (150-450) k/uL MPV 9.8 Neutrophils % 68 % Lymphocytes % 23 % Monocytes % 5 % Eosinophils % 3 % Basophils % 0 % Neutrophils # 5.6 (1.3-7.7) k/uL Lymphocytes # 1.9 (1.0-4.8) k/uL Monocytes # 0.4 (0-1.0) k/uL Eosinophils # 0.2 (0-0.7) k/uL Basophils # 0.0 (0-0.2) k/uL PT 10.4 (9.0-12.0) sec INR 1.0 (<1.2) APTT 25.1 (22.0-30.0) sec Sodium 139 (137-145) mmol/L Potassium 4.1 (3.5-5.1) mmol/L Chloride 106 (98-107) mmol/L Carbon Dioxide 21 L (22-30) mmol/L Anion Gap 12 mmol/L BUN 15 (9-20) mg/dL Creatinine 0.97 (0.66-1.25) mg/dL Est GFR (CKD-EPI)AfAm >90 (>60 ml/min/1.73 sqM) Est GFR (CKD-EPI)NonAf >90 (>60 ml/min/1.73 sqM) Glucose 128 H (74-99) mg/dL Calcium 9.9 (8.4-10.2) mg/dL Magnesium 2.0 (1.6-2.3) mg/dL Total Bilirubin 0.5 (0.2-1.3) mg/dL AST 56 (17-59) U/L ALT 104 H (4-49) U/L Alkaline Phosphatase 44 (38-126) U/L Troponin I (0.000-0.034) ng/mL Total Protein 7.8 (6.3-8.2) g/dL Albumin 5.0 (3.5-5.0) g/dL Coronavirus (PCR) (Not Detectd) 02/16/21 02/16/21 Range/Units 19:12 19:12 WBC (3.8-10.6) k/uL RBC (4.30-5.90) m/uL Hgb (13.0-17.5) gm/dL Hct (39.0-53.0) % MCV (80.0-100.0) fL MCH (25.0-35.0) pg MCHC (31.0-37.0) g/dL RDW (11.5-15.5) % Plt Count (150-450) k/uL MPV Neutrophils % % Lymphocytes % % Monocytes % % Eosinophils % % Basophils % % Neutrophils # (1.3-7.7) k/uL Lymphocytes # (1.0-4.8) k/uL Monocytes # (0-1.0) k/uL Eosinophils # (0-0.7) k/uL Basophils # (0-0.2) k/uL PT (9.0-12.0) sec INR (<1.2) APTT (22.0-30.0) sec Sodium (137-145) mmol/L Potassium (3.5-5.1) mmol/L Chloride (98-107) mmol/L Carbon Dioxide (22-30) mmol/L Anion Gap mmol/L BUN (9-20) mg/dL Creatinine (0.66-1.25) mg/dL Est GFR (CKD-EPI)AfAm (>60 ml/min/1.73 sqM) Est GFR (CKD-EPI)NonAf (>60 ml/min/1.73 sqM) Glucose (74-99) mg/dL Calcium (8.4-10.2) mg/dL Magnesium (1.6-2.3) mg/dL Total Bilirubin (0.2-1.3) mg/dL AST (17-59) U/L ALT (4-49) U/L Alkaline Phosphatase (38-126) U/L Troponin I <0.012 (0.000-0.034) ng/mL Total Protein (6.3-8.2) g/dL Albumin (3.5-5.0) g/dL Coronavirus (PCR) Not Detected (Not Detectd) Critical Care Time Critical Care Time: Yes Total Critical Care Time: 35 Disposition Clinical Impression: Unstable angina pectoris Disposition: ADMITTED IP TO THIS HOSP Referrals: Nicholas Jennings DO [Primary Care Provider] - 1-2 days Time of Disposition: 19:28
[2021-02-16 19:30] LABS: ALT 104 U/L (4-49); AST 56 U/L (17-59); African American GFR (CKD) >90 (>60 ml/min/1.73 sqM); Alkaline Phosphatase 44 U/L (38-126); Anion Gap 12 mmol/L; Blood Urea Nitrogen 15 mg/dL (9-20); Calcium 9.9 mg/dL (8.4-10.2); Carbon Dioxide 21 mmol/L (22-30); Chloride 106 mmol/L (98-107); Glucose 128 mg/dL (74-99); Non-African American GFR(CKD) >90 (>60 ml/min/1.73 sqM); Partial Thromboplastin Time 25.1 sec (22.0-30.0); Potassium 4.1 mmol/L (3.5-5.1); Prothrombin Time 10.4 sec (9.0-12.0); Sodium 139 mmol/L (137-145); Total Bilirubin 0.5 mg/dL (0.2-1.3); Total Protein 7.8 g/dL (6.3-8.2)
[2021-02-16] MEDS ORDERED: NITROGLYCERIN OINT 1 INCH/GM PACKET TOPICAL STA (19:31)
[2021-02-16] MEDS ORDERED: ASPIRIN 81 MG PO STA (19:31)
[2021-02-16] MEDS ORDERED: NITROGLYCERIN SL TABS 0.4 MG TAB SUBLINGUAL STA (19:31)
--- NOTE | 2021-02-16 19:55 | XR ---
EXAMINATION: XR chest 2V DATE AND TIME: 02/16/2021 7:24 PM CLINICAL INDICATION: PHH; Chest Pain TECHNIQUE: Departmental protocol COMPARISON: 03/06/2019 FINDINGS: The lungs are clear. The pleural spaces are negative. The cardiac silhouette is not enlarged. The remainder of the mediastinal silhouette is unremarkable. The skeletal structures and soft tissues are negative for acute findings. IMPRESSION: No definite acute radiographic process.
[2021-02-16] MEDS ORDERED: HEPARIN SODIUM 1,000 UN/ML (10ML VL) IV ONE (20:25)
[2021-02-16] MEDS ORDERED: NITROGLYCERIN SL TABS 0.4 MG TAB SUBLINGUAL PRN (20:26)
[2021-02-16] MEDS ORDERED: HEPARIN SOD,PORK IN 0.45% NACL 25,000 UNIT in 0.45% NACL 1 250ML.BAG IV SCH (20:30)
[2021-02-16] MEDS: NITROGLYCERIN OINT 1 INCH/GM PACKET TOPICAL SCH (23:55)
[2021-02-17] MEDS: NITROGLYCERIN OINT 1 INCH/GM PACKET TOPICAL SCH (05:43)
[2021-02-17] MEDS ORDERED: ASPIRIN 325 MG TAB PO SCH (09:00)
[2021-02-17] MEDS ORDERED: ASPIRIN 81 MG PO SCH (09:00)
--- NOTE | 2021-02-17 11:21 | ECHOF ---
Referral Reason:LV function MEASUREMENTS -------- HEIGHT: 175.3 cm WEIGHT: 94.8 kg BP: 116/61 RVIDd: 3.3 cm (< 3.3) IVSd: 1.1 cm (0.6 - 1.1) LVIDd: 4.7 cm (3.9 - 5.3) LVPWd: 1.2 cm (0.6 - 1.1) IVSs: 1.6 cm LVIDs: 3.0 cm LVPWs: 1.8 cm LA Diam: 3.4 cm (2.7 - 3.8) LAESV Index (A-L): 24.11 ml/m Ao Diam: 3.6 cm (2.0 - 3.7) AV Cusp: 2.2 cm (1.5 - 2.6) MV EXCURSION: 15.618 mm (> 18.000) MV EF SLOPE: 117 mm/s (70 - 150) EPSS: 0.4 cm MV E Star: 1.04 m/s MV DecT: 187 ms MV A Star: 0.77 m/s MV E/A Ratio: 1.34 RAP: 5.00 mmHg RVSP: 24.03 mmHg FINDINGS -------- Sinus rhythm. This was a technically good study. The left ventricular size is normal. There is borderline concentric left ventricular hypertrophy. Overall left ventricular systolic function is normal with, an EF between 60 - 65 %. The right ventricle is mildly enlarged. Normal LA size by volume 22+/-6 ml/m2. The right atrium is normal in size. Interatrial and interventricular septum intact. The aortic valve is trileaflet, and appears structurally normal. No aortic stenosis or regurgitation. The mitral valve is normal. Mild tricuspid regurgitation present. Right ventricular systolic pressure is normal at < 35 mmHg. Trace/mild (physiologic) pulmonic regurgitation. The aortic root size is normal. Normal inferior vena cava with normal inspiratory collapse consistent with estimated right atrial pre ssure of 5 mmHg. There is no pericardial effusion. CONCLUSIONS -------- 1. The left ventricular size is normal. 2. There is borderline concentric left ventricular hypertrophy. 3. Overall left ventricular systolic function is normal with, an EF between 60 - 65 %. 4. The right ventricle is mildly enlarged. 5. Normal LA size by volume 22+/-6 ml/m2. 6. The aortic valve is trileaflet, and appears structurally normal. No aortic stenosis or regurgitati on. 7. Mild tricuspid regurgitation present. 8. Trace/mild (physiologic) pulmonic regurgitation. 9. There is no pericardial effusion. HORTICULTURE SUPERVISOR: Nisreen Cordon RDCS
--- NOTE | 2021-02-17 11:46 | P.CRDCN ---
History of Present Illness History of present illness: HISTORY OF PRESENTING ILLNESS This is a pleasant 45-year-old male past medical history significant for hypertension, hyperlipidemia, daily alcohol use, chronic nicotine dependence. 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 We have been asked to see in consultation for chest pain. Patient is seen and examined at bedside. He states 3 days ago he was at a conference in [place]. He developed left sided chest pain and left sided back pain. He rates the pain 4/10, describes it as a pressure, occasionally has sharp pain intermittently. He denies exertional pain. He states the pain has come and go. He has had this pain before at that time he underwent an echocardiogram with his PCP and was told that was normal, however, this time it is worse an decided to present to the emergency department. He denies associated nausea, shortness of breath, diaphoresis, palpitations, weakness, lightheadedness, syncope. He denies symptoms of orthopnea or PND. Aggravating factors to his chest are palpation to the left chest. He does state that sublinqual nitro helped with the pain. He denies history of ID, Stroke, coronary artery disease. He does drink about 2 beers per day. He smokes 1 PPD. His family history includes his brother has had two MIs with stents placed, first at the age of 42. His grandfather also had an ID with stents placed. He states his blood pressure is high when he goes to doctor's office, needs to be checked twice, and usually decreases. DIAGNOSTICS EKG reveals sinus rhythm, HR 74, no significant ST-T wave abnormalities Telemetry tracings indicate sinus mechanism Chest xray no acute cardiopulmonary process Laboratory reviewed, troponin negative 3, sodium 139, potassium 4.1, BUN 15, serum creatinine 0.9, COVID-19 Negative Echocardiogram revealed an EF of 6060 percent, RV is mildly enlarged, mild tricuspid regurgitation REVIEW OF SYSTEMS At the time of my exam: CONSTITUTIONAL: Denies fever or chills. CARDIOVASCULAR: +chest pain, Denies shortness of breath, orthopnea, PND or palpitations. RESPIRATORY: Denies cough. GASTROINTESTINAL: Denies abdominal pain, diarrhea, constipation, nausea or vomiting. MUSCULOSKELETAL: +back pain NEUROLOGIC: Denies numbness, tingling, headacbe or weakness. ENDOCRINE: Denies fatigue, weight change, polydipsia or polyurina. GENITOURINARY: Denies burning, hematuria or urgency with micturation. HEMATOLOGIC: Denies history of anemia or bleeding. PHYSICAL EXAMINATION Blood pressure 123/80 heart rate 56 afebrile and maintaining oxygen saturation on room air. CONSTITUTIONAL: No apparent distress. HEENT: Head is normocephalic. Pupils are equal, round. Sclerae anicteric. Mucous membranes of the mouth are moist. No JVD. No carotid bruit. CHEST EXAMINATION: Lungs are clear to auscultation. There is chest wall tende rness is noted on palpation to left chest HEART EXAMINATION: Regular rate and rhythm. S1, S2 heard. No murmurs, gallops or rub. ABDOMEN: Soft, nontender. Positive bowel sounds. EXTREMITIES: 2+ peripheral pulses, no lower extremity edema and no calf tenderness. SKIN: warm dry NEUROLOGIC EXAMINATION: Patient is awake, alert and oriented x3. ASSESSMENT Chest pain, atypical acute coronary syndrome has been ruled out Hypertension Hyperlipidemia Family history of heart disease Chronic nicotine dependence PLAN An acute coronary event has been ruled out with no EKG evidence of ischemia and negative cardiac enzymes. 2D Echo obtained and reviewed Perform stress echo test to assess for stress induced cardiac ischemia. If abnormal will consider coronary angiography. Lipid panel pending Continue statin If stress test with no acute findings, ok to discharge patient from cardiology perspective Patient can follow up outpatient with Dr. Ha Smoking cessation discussed and highly recommended. Thank you kindly for this consultation. Nurse Practitioner note has been reviewed, I agree with a documented findings and plan of care. Patient was seen and examined. Past Medical History Past Medical History: Hyperlipidemia, Hypertension Additional Past Medical History / Comment(s): Patient states he had a CT that showed diverticulosis History of Any Multi-Drug Resistant Organisms: None Reported Past Surgical History: No Surgical Hx Reported Past Anesthesia/Blood Transfusion Reactions: No Reported Reaction Past Psychological History: No Psychological Hx Reported Smoking Status: Current every day smoker, Heavy tobacco smoker Past Alcohol Use History: Daily Additional Past Alcohol Use History / Comment(s): 2 BEERS Past Drug Use History: None Reported - Past Family History Father Family Medical History: No Reported History Additional Family Medical History / Comment(s): Possibly heart stents Mother Family Medical History: Diabetes Mellitus, Hypertension Brother(s) Family Medical History: Myocardial Infarction ([place]) Additional Family Medical History / Comment(s): Had heart attack at 39 Medications and Allergies Home Medications Medication Instructions Recorded Confirmed Type Atorvastatin Calcium [Lipitor] 40 mg PO HS 02/16/21 02/16/21 History Fenofibrate [Lofibra] 160 mg PO HS 02/16/21 02/16/21 History Omeprazole 20 mg PO HS 02/16/21 02/16/21 History Allergies Allergy/AdvReac Type Severity Reaction Status Date / Time No Known Allergies Allergy Verified 02/16/21 19:43 Physical Exam Vitals: Vital Signs Temp Pulse Pulse Resp BP BP Pulse Ox 02/17/21 04:00 98.2 F 56 L 17 123/80 98 02/17/21 02:00 55 L 02/17/21 00:00 98.5 F 66 18 141/86 98 02/16/21 23:10 98.1 F 62 18 143/91 99 02/16/21 21:54 67 18 143/87 97 02/16/21 21:00 73 20 138/86 98 02/16/21 20:08 75 18 147/96 96 02/16/21 20:00 72 18 157/95 95 02/16/21 18:37 98.1 F 77 18 173/98 97 Intake and Output 02/16/21 02/17/21 02/17/21 22:59 06:59 14:59 Intake Total 40 58.333 Balance 40 58.333 Intake: Intake, IV Titration 40 58.333 Amount Heparin Sod,Pork in 0.45% 40 58.333 NaCl 25,000 unit In 0.45 % NaCl 1 250ml.bag @ 9. 381 UNITS/KG/HR 10 mls/hr IV .Q24H [facility] Rx#: [id number] Other: Voiding Method Urinal # Voids 1 Weight 106.594 kg 95.1 kg Results 02/16/21 19:12 02/16/21 19:12 Cardiac Enzymes 02/16/21 02/16/21 02/16/21 Range/Units 19:12 19:12 23:30 AST 56 (17-59) U/L Troponin I <0.012 <0.012 (0.000-0.034) ng/mL 02/17/21 Range/Units 02:36 AST (17-59) U/L Troponin I <0.012 (0.000-0.034) ng/mL Coagulation 02/16/21 02/17/21 Range/Units 19:12 02:36 PT 10.4 (9.0-12.0) sec APTT 25.1 32.9 H (22.0-30.0) sec CBC 02/16/21 Range/Units 19:12 WBC 8.2 (3.8-10.6) k/uL RBC 4.15 L (4.30-5.90) m/uL Hgb 13.7 (13.0-17.5) gm/dL Hct 39.6 (39.0-53.0) % Plt Count 172 (150-450) k/uL Comprehensive Metabolic Panel 02/16/21 Range/Units 19:12 Sodium 139 (137-145) mmol/L Potassium 4.1 (3.5-5.1) mmol/L Chloride 106 (98-107) mmol/L Carbon Dioxide 21 L (22-30) mmol/L BUN 15 (9-20) mg/dL Creatinine 0.97 (0.66-1.25) mg/dL Glucose 128 H (74-99) mg/dL Calcium 9.9 (8.4-10.2) mg/dL AST 56 (17-59) U/L ALT 104 H (4-49) U/L Alkaline Phosphatase 44 (38-126) U/L Total Protein 7.8 (6.3-8.2) g/dL Albumin 5.0 (3.5-5.0) g/dL Current Medications Generic Name Dose Route Start Last Admin Trade Name Freq PRN Reason Stop Dose Admin Aspirin 325 mg 02/17/21 09:00 Aspirin 325 Mg Tab PO DAILY [facility] Heparin Sodium/Sodium Chloride 250 mls @ 10 mls/hr 02/16/21 20:30 02/17/21 03:41 25,000 unit/ Sodium Chloride IV 12.38 units/kg/hr .Q24H [facility] 13.196 mls/hr Titration Protocol 9.381 UNITS/KG/HR Nitroglycerin 1 inch 02/17/21 00:00 02/17/21 05:43 Nitroglycerin Oint 1 Inch/Gm Packet TOPICAL 1 inch Q6HR [facility] Administration Nitroglycerin 0.4 mg 02/16/21 20:26 Nitroglycerin Sl Tabs 0.4 Mg Tab SUBLINGUAL Q5M PRN Chest Pain Intake and Output 09/02/17/21 02/17/21 22:59 06:59 14:59 Intake Total 40 58.333 Balance 40 58.333 Intake: Intake, IV Titration 40 58.333 Amount Heparin Sod,Pork in 0.45% 40 58.333 NaCl 25,000 unit In 0.45 % NaCl 1 250ml.bag @ 9. 381 UNITS/KG/HR 10 mls/hr IV .Q24H [facility] Rx#: [id number] Other: Voiding Method Urinal # Voids 1 Weight 106.594 kg 95.1 kg 02/16/21 19:12 02/16/21 19:12
--- NOTE | 2021-02-17 12:08 | ECHOS ---
STRESS ECHOCARDIOGRAM INDICATIONS: Chest pain. BASELINE HEART RATE: 58 BASELINE BLOOD PRESSURE: 116/61 MAXIMUM HEART RATE: 160 MAXIMUM BLOOD PRESSURE: 235/92 85% MPHR: 147 100% MPHR: 173 METS: 12.1 MAXIMUM STAGE REACHED: 4 TOTAL EXERCISE TIME: 12:00 CLINICAL INFORMATION: STRESS DATA: Heart rate 58, pressure 116/61 mmHg. Baseline EKG showed sinus mechanism. The patient exercised on the treadmill according to Timo protocol for a total of 12 minutes and achieved 12.1 METS. Max heart rate was 160, which is about 92% of maximum predicted heart rate. Maximum blood pressure was 235/92 mmHg. Clinically the patient did not have any symptoms. The EKG did not show any significant ST or T-wave abnormalities concerning for ischemia. ECHOCARDIOGRAM IMAGES: Echocardiogram images from parasternal long axis view, parasternal short axis view, apical 4-chamber and apical 2-chamber views were obtained as the baseline images, at the peak of the heart rate as well as on recovery. The echo showed good augmentation in the left ventricular systolic function without any evidence of wall motion abnormalities concerning for ischemia. CONCLUSION: 1. Excellent exercise tolerance. 2. Normal EKG in response to exercise. 3. Normal echocardiogram in response to exercise. 4. Essentially normal stress echocardiogram for the patient. MMODL / IJN: [id number] /
[2021-02-17 13:00] VITALS: RESP 18; TEMP 97.9
[2021-02-17 17:22] VITALS: BP 154/80; PULSE 74
[2021-02-17 20:45] LABS: Chol/HDL Ratio 8.77; LDL Cholesterol,Calculated 96.8 mg/dL (0.0-131.0); VLDL Calculation 74.2 mg/dL (5.00-40.00)
[2021-02-17] MEDS ORDERED: PANTOPRAZOLE 40 MG TABLET PO SCH (21:00)
[2021-02-17] MEDS ORDERED: ATORVASTATIN 40 MG TAB PO SCH (21:00)
[2021-02-17] MEDS ORDERED: FENOFIBRATE 160 MG TAB PO SCH (21:00)
--- NOTE | 2021-02-23 01:41 | P.HPIM ---
History of Present Illness H&P Date: 02/17/21 Chief Complaint: CP 45-year-old male who presents emergency Department complaining of chest pain for 3 days. Patient states the left-sided chest radiates to his upper left back. Patient states he is a heavy smoker has high cholesterol might have high blood pressure but is not currently treated for. Patient also states he has a younger brother who is 42 and he has had 2 heart attacks. Patient states that there is some shortness of breath but no diaphoretic episode no nausea. Patient denies any lightheadedness or dizziness. Patient denies headache patient denies nu mbness weakness. Patient denies abdominal pain patient denies nausea vomiting or diarrhea. EKG reveals sinus rhythm, HR 74, no significant ST-T wave abnormalities Telemetry tracings indicate sinus mechanism Chest xray no acute cardiopulmonary process Laboratory reviewed, troponin negative 3, sodium 139, potassium 4.1, BUN 15, serum creatinine 0.9, COVID-19 Negative Echocardiogram revealed an EF of 6060 percent, RV is mildly enlarged, mild tricuspid regurgitation Review of Systems CONSTITUTIONAL: Denies fever or chills. CARDIOVASCULAR: +chest pain, Denies shortness of breath, orthopnea, PND or palpitations. RESPIRATORY: Denies cough. GASTROINTESTINAL: Denies abdominal pain, diarrhea, constipation, nausea or vomiting. MUSCULOSKELETAL: +back pain NEUROLOGIC: Denies numbness, tingling, headacbe or weakness. ENDOCRINE: Denies fatigue, weight change, polydipsia or polyurina. GENITOURINARY: Denies burning, hematuria or urgency with micturation. HEMATOLOGIC: Denies history of anemia or bleeding. Past Medical History Past Medical History: Hyperlipidemia, Hypertension Additional Past Medical History / Comment(s): Patient states he had a CT that showed diverticulosis History of Any Multi-Drug Resistant Organisms: None Reported Past Surgical History: No Surgical Hx Reported Past Anesthesia/Blood Transfusion Reactions: No Reported Reaction Past Psychological History: No Psychological Hx Reported Smoking Status: Current every day smoker, Heavy tobacco smoker Past Alcohol Use History: Daily Additional Past Alcohol Use History / Comment(s): 2 BEERS Past Drug Use History: None Reported - Past Family History Father Family Medical History: No Reported History Additional Family Medical History / Comment(s): Possibly heart stents Mother Family Medical History: Diabetes Mellitus, Hypertension Brother(s) Family Medical History: Myocardial Infarction ([place]) Additional Family Medical History / Comment(s): Had heart attack at 39 Medications and Allergies Home Medications Medication Instructions Recorded Confirmed Type Atorvastatin Calcium [Lipitor] 40 mg PO HS 02/16/21 02/16/21 History Fenofibrate [Lofibra] 160 mg PO HS 02/16/21 02/16/21 History Omeprazole 20 mg PO HS 02/16/21 02/16/21 History Aspirin 81 mg PO DAILY tab 02/17/21 Rx Allergies Allergy/AdvReac Type Severity Reaction Status Date / Time No Known Allergies Allergy Verified 02/16/21 19:43 Physical Exam Vitals: Vital Signs Temp Pulse Pulse Resp BP BP Pulse Ox 02/17/21 07:55 98 02/17/21 04:00 98.2 F 56 L 17 123/80 98 02/17/21 02:00 55 L 02/17/21 00:00 98.5 F 66 18 141/86 98 02/16/21 23:10 98.1 F 62 18 143/91 99 02/16/21 21:54 67 18 143/87 97 02/16/21 21:00 73 20 138/86 98 02/16/21 20:08 75 18 147/96 96 02/16/21 20:00 72 18 157/95 95 02/16/21 18:37 98.1 F 77 18 173/98 97 Intake and Output 02/16/21 02/17/21 02/17/21 22:59 06:59 14:59 Intake Total 40 58.333 Balance 40 58.333 Intake: Intake, IV Titration 40 58.333 Amount Heparin Sod,Pork in 0.45% 40 58.333 NaCl 25,000 unit In 0.45 % NaCl 1 250ml.bag @ 9. 381 UNITS/KG/HR 10 mls/hr IV .Q24H [facility] Rx#: [id number] Other: Voiding Method Urinal # Voids 1 1 Weight 106.594 kg 95.1 kg 95.1 kg CONSTITUTIONAL: No apparent distress. HEENT: Head is normocephalic. Pupils are equal, round. Sclerae anicteric. Mucous membranes of the mouth are moist. No JVD. No carotid bruit. CHEST EXAMINATION: Lungs are clear to auscultation. There is chest wall tenderness is noted on palpation to left chest HEART EXAMINATION: Regular rate and rhythm. S1, S2 heard. No murmurs, gallops or rub. ABDOMEN: Soft, nontender. Positive bowel sounds. EXTREMITIES: 2+ peripheral pulses, no lower extremity edema and no calf tenderness. SKIN: warm dry NEUROLOGIC EXAMINATION: Patient is awake, alert and oriented x3. Results CBC & Chem 7: 02/16/21 19:12 02/16/21 19:12 Labs: Abnormal Lab Results - Last 24 Hours (Table) 02/16/21 02/16/21 02/17/21 Range/Units 19:12 19:12 02:36 RBC 4.15 L (4.30-5.90) m/uL APTT 32.9 H (22.0-30.0) sec Carbon Dioxide 21 L (22-30) mmol/L Glucose 128 H (74-99) mg/dL ALT 104 H (4-49) U/L Thrombosis Risk Factor Assmnt - Choose All That Apply Any of the Below Risk Factors Present?: Yes Each Factor Represents 1 point: Age 41-60 years, Obesity (BMI >25) Other congenital or acquired thrombophilia - If yes, enter type in comment: No Thrombosis Risk Factor Assessment Total Risk Factor Score: 2 Thrombosis Risk Factor Assessment Level: Low Risk Assessment and Plan Assessment: 1. Chest pain, atypical acute coronary syndrome has been ruled out 2. Hypertension 3. Hyperlipidemia 4. Chronic nicotine dependence PLAN An acute coronary event has been ruled out with no EKG evidence of ischemia and negative cardiac enzymes. 2D Echo obtained and reviewed Perform stress echo test to assess for stress induced cardiac ischemia. If abnormal will consider coronary angiography. Lipid panel pending Continue statin If stress test with no acute findings, ok to discharge patient from cardiology perspective Patient recommended to follow up outpatient with Dr. Ha Smoking cessation discussed and highly recommended.
--- NOTE | 2021-02-23 01:44 | P.DS ---
Providers Date of admission: 02/16/21 20:26 Expected date of discharge: 02/17/21 Attending physician: Ashley Landis Consults: 02/16/21 20:26 Consult Physician Urgent Consulting Provider: [facility] Reason/Comments: Unstable angina Do you want consulting provider notified?: Yes Primary care physician: Nicholas [facility] Course: 45-year-old male who presents emergency Department complaining of chest pain for 3 days. Patient states the left-sided chest radiates to his upper left back. Patient states he is a heavy smoker has high cholesterol might have high blood pressure but is not currently treated for. Patient also states he has a younger brother who is 42 and he has had 2 heart attacks. Patient states that there is some shortness of breath but no diaphoretic episode no nausea. Patient denies any lightheadedness or dizziness. Patient denies headache patient denies numbness weakness. Patient denies abdominal pain patient denies nausea vomiting or diarrhea. EKG reveals sinus rhythm, HR 74, no significant ST-T wave abnormalities Telemetry tracings indicate sinus mechanism Chest xray no acute cardiopulmonary process Laboratory reviewed, troponin negative 3, sodium 139, potassium 4.1, BUN 15, serum creatinine 0.9, COVID-19 Negative Echocardiogram revealed an EF of 6060 percent, RV is mildly enlarged, mild tricuspid regurgitation Patient was evaluated by cardiology with following recommendations; Chest pain, atypical acute coronary syndrome has been ruled out Hypertension Hyperlipidemia Family history of heart disease Chronic nicotine dependence PLAN An acute coronary event has been ruled out with no EKG evidence of ischemia and negative cardiac enzymes. 2D Echo obtained and reviewed Perform stress echo test to assess for stress induced cardiac ischemia. If abnormal will consider coronary angiography. Stress test was unremarkable and patient was sd'ed in a stable condition to follow up with cardiology Plan - Discharge Summary New Discharge Prescriptions: New Aspirin 81 mg PO DAILY tab Continue Fenofibrate [Lofibra] 160 mg PO HS Atorvastatin Calcium [Lipitor] 40 mg PO HS Omeprazole 20 mg PO HS Discharge Medication List Atorvastatin Calcium [Lipitor] 40 mg PO HS 02/16/21 [History] Fenofibrate [Lofibra] 160 mg PO HS 02/16/21 [History] Omeprazole 20 mg PO HS 02/16/21 [History] Aspirin 81 mg PO DAILY tab 02/17/21 [Rx] Follow up Appointment(s)/Referral(s): Salo Ha DO [STAFF PHYSICIAN] - 2 Weeks (Office will call with appointment date and time ) Nicholas Jennings DO [Primary Care Provider] - 02/21/21 1:00 pm Discharge Disposition: HOME SELF-CARE
== END 2021-02-17 17:20 | disposition home or self-care (01) ==
LOC: EC 18:32 → 6NMEDSUR 20:26 → 3SCARD 22:25
PROVIDERS: ADMIT Hospitalist; ATTEND Hospitalist
DX: R07.89 Other chest pain (principal); I10 Essential (primary) hypertension; E78.5 Hyperlipidemia, unspecified; F17.210 Nicotine dependence, cigarettes, uncomplicated; M54.9 Dorsalgia, unspecified; R06.02 Shortness of breath; I07.1 Rheumatic tricuspid insufficiency; E66.9 Obesity, unspecified; Z68.31 Body mass index [BMI] 31.0-31.9, adult; K57.90 Diverticulosis of intestine, part unspecified, without perforation or abscess without bleeding; Z20.822 Contact with and (suspected) exposure to COVID-19; Z79.899 Other long term (current) drug therapy; Z79.82 Long term (current) use of aspirin; Z71.6 Tobacco abuse counseling; Z82.49 Family history of ischemic heart disease and other diseases of the circulatory system; Z83.3 Family history of diabetes mellitus
CPT/HCPCS: 96366 ×2; 96376; 96365; 99291; 36415; 94760; 93005; 93306; 93351; 80061; 80053; 83735; 84484 ×2; 85025; 85610; 85730 ×2; 87635; 71046; G0378 ×3; J1644 ×2

== ENCOUNTER 2023-11-05 09:36 | Emergency (ER) | payer BC ==
[2023-11-05 11:27] VITALS: RESP 16; TEMP 97.9
[2023-11-05] MEDS: SODIUM CHLORIDE 0.9% 1,000 ML IV STA (11:48)
[2023-11-05 11:58] LABS: Basophils % (A) 1 %; Eosinophils # (A) 0.7 k/uL (0-0.7); Eosinophils % (A) 10 %; HCT 46.4 % (39.0-53.0); HGB 15.6 gm/dL (13.0-17.5); Lymphocytes # (A) 2.1 k/uL (1.0-4.8); Lymphocytes % (A) 29 %; MCH 31.6 pg (25.0-35.0); MCHC 33.6 g/dL (31.0-37.0); Mean Platelet Volume 10.2; Monocytes # (A) 0.4 k/uL (0-1.0); Monocytes % (A) 5 %; Neutrophils # (A) 3.8 k/uL (1.3-7.7); Neutrophils % (A) 53 %; Platelet Count 165 k/uL (150-450); RBC 4.94 m/uL (4.30-5.90); RDW 13.5 % (11.5-15.5); WBC 7.1 k/uL (3.8-10.6)
[2023-11-05 12:07] LABS: ALT 148 U/L (4-49); AST 66 U/L (17-59); African American GFR (CKD) >90 (>60 ml/min/1.73 sqM); Albumin 5.2 g/dL (3.5-5.0); Alkaline Phosphatase 78 U/L (38-126); Anion Gap 8 mmol/L; Blood Urea Nitrogen 12 mg/dL (9-20); Calcium 9.9 mg/dL (8.4-10.2); Carbon Dioxide 25 mmol/L (22-30); Chloride 107 mmol/L (98-107); Glucose 120 mg/dL (74-99); Lipase 171 U/L (23-300); Non-African American GFR(CKD) >90 (>60 ml/min/1.73 sqM); Potassium 4.7 mmol/L (3.5-5.1); Sodium 140 mmol/L (137-145); Total Bilirubin 0.7 mg/dL (0.2-1.3); Total Protein 8.2 g/dL (6.3-8.2)
--- NOTE | 2023-11-05 12:54 | CT ---
EXAMINATION TYPE: CT abdomen pelvis w con CT DLP: 1475.7 mGycm, Automated exposure control for dose reduction was used. DATE OF EXAM: 11/05/2023 12:15 PM COMPARISON: CT abdomen pelvis most recent from 08/03/2010 CLINICAL INDICATION:Male, 48 years old with history of LLQ abdominal pain hx diverticulitis; LLQ sharon n, history of diverticulitis TECHNIQUE: Axial CT abdomen pelvis w con;Sagittal and coronal reformats were created on a separate w orkstation. Contrast used:100 mL of Isovue 300 with IV Contrast, (none if empty) Oral contrast used: without Oral Contrast (none if empty) FINDINGS: LOWER CHEST: Unremarkable ABDOMEN LIVER: Enlarged with diffuse low-attenuation. GALLBLADDER AND BILE DUCTS: Unremarkable. PANCREAS: Unremarkable. SPLEEN: Unremarkable. ADRENAL GLANDS: Unremarkable. KIDNEYS AND URETERS: No evidence of hydronephrosis or renal calculus. The ureters are unremarkable. PELVIS BLADDER: Unremarkable REPRODUCTIVE: Unremarkable. ABDOMEN & PELVIS STOMACH AND BOWEL: No evidence of bowel obstruction. Scattered colonic diverticula. Extremity changes around a couple of the diverticula in the pelvis is thought to be present PERITONEUM/RETROPERITONEUM: No evidence of pneumoperitoneum or free fluid. VASCULATURE: No evidence of aortic aneurysm. MUSCULOSKELETAL: No acute osseous abnormalities LYMPH NODES: No gross evidence for lymphadenopathy. SOFT TISSUE/ABDOMINAL WALL: Fat-containing left inguinal hernia. IMPRESSION: 1. Mild inflammation changes around a few colonic diverticula in the sigmoid colon suggestive of unc omplicated diverticulitis. No other acute left lower quadrant process to explain the patient's pain. 2. Hepatomegaly with severe hepatic steatosis.
--- NOTE | 2023-11-05 13:16 | ED ---
Abdominal Pain HPI - General Chief Complaint: Abdominal Pain Stated Complaint: diverticulitis Time Seen by Provider: 11/05/23 10:46 Source: patient, RN notes reviewed Mode of arrival: ambulatory Limitations: no limitations - History of Present Illness Initial Comments: 48-year-old male presents emergency department chief complaint of left-sided abdominal pain lower abdominal pain. Patient states that has been on and off for last couple weeks but states worse since last few days. Patient states he has a history of diverticulosis states that he has had some infection in the past and he does just clear liquid diet. He states he has not improved. P atient states symptoms seem to worsen no fevers no chills no other complaints. - Related Data Home Medications Medication Instructions Recorded Confirmed Omeprazole Magnesium [PriLOSEC OTC] 20 mg PO DAILY 11/05/23 11/05/23 Previous Rx's Medication Instructions Recorded Amoxic-Pot Clav 875-125Mg 1 tab PO Q12HR #20 tab 11/05/23 [Augmentin 875-125] Allergies Allergy/AdvReac Type Severity Reaction Status Date / Time No Known Allergies Allergy Verified 11/05/23 12:42 Review of Systems ROS Statement: Those systems with pertinent positive or pertinent negative responses have been documented in the HPI. ROS Other: All systems not noted in ROS Statement are negative. Past Medical History Past Medical History: Hyperlipidemia, Hypertension Additional Past Medical History / Comment(s): Patient states he had a CT that showed diverticulosis History of Any Multi-Drug Resistant Organisms: None Reported Past Surgical History: No Surgical Hx Reported Past Anesthesia/Blood Transfusion Reactions: No Reported Reaction Past Psychological History: No Psychological Hx Reported Smoking Status: Current every day smoker, Heavy tobacco smoker Past Alcohol Use History: Daily Past Drug Use History: None Reported - Past Family History Father Family Medical History: No Reported History Additional Family Medical History / Comment(s): Possibly heart stents Mother Family Medical History: Diabetes Mellitus, Hypertension Brother(s) Family Medical History: Myocardial Infarction ([place]) Additional Family Medical History / Comment(s): Had heart attack at 39 General Exam Limitations: no limitations General appearance: alert, in no apparent distress Head exam: Present: atraumatic, normocephalic, normal inspection Eye exam: Present: normal appearance, PERRL, EOMI. Absent: scleral icterus, conjunctival injection, periorbital swelling Respiratory exam: Present: normal lung sounds bilaterally. Absent: respiratory distress, wheezes, rales, rhonchi, stridor Cardiovascular Exam: Present: regular rate, normal rhythm, normal heart sounds. Absent: systolic murmur, diastolic murmur, rubs, gallop, clicks GI/Abdominal exam: Present: soft, tenderness, normal bowel sounds. Absent: distended, guarding, rebound, rigid Course Vital Signs 11/05/23 11/05/23 09:55 11:24 Temperature 98.1 F 97.9 F Pulse Rate 71 61 Respiratory 20 16 Rate Blood Pressure 158/98 169/102 O2 Sat by Pulse 99 97 Oximetry Medical Decision Making - Medical Decision Making Was pt. sent in by a medical professional or institution (, PA, [facility], urgent care, hospital, or snf...) When possible be specific @ -No Did you speak to anyone other than the patient for history (EMS, parent, family, police, friend...)? What history was obtained from this source @ -No Did you review nursing and triage notes (agree or disagree)? Why? @ -I reviewed and agree with nursing and triage notes Were old charts reviewed (outside hosp., previous admission, EMS record, old EKG, old radiological studies, urgent care reports/EKG's, snf records)? Report findings @ -No old charts were reviewed Differential Diagnosis (chest pain, altered mental status, abdominal pain women, abdominal pain men, vaginal bleeding, weakness, fever, dyspnea, syncope, headache, dizziness, GI bleed, back pain, seizure, CVA, palpatations, mental health, musculoskeletal)? @ -Differential Abdominal Pain Men: Appendicitis, cholecystitis, diverticulosis, ischemic bowel, pancreatitis, hepatitis, UTI, gastroenteritis, AAA, incarcerated hernia, bowel obstruction, constipation, inflammatory bowel, hepatitis, peptic ulcer disease, splenic infarction, perforated viscus, testicular torsion, this is not meant to be an all-inclusive list EKG interpreted by me (3pts min.). @ -As above X-rays interpreted by me (1pt min.). @ -None done CT interpreted by me (1pt min.). @ -None done U/S interpreted by me (1pt. min.). @ -None done What testing was considered but not performed or refused? (CT, X-rays, U/S, labs)? Why? @ -None What meds were considered but not given or refused? Why? @ -None Did you discuss the management of the patient with other professionals (professionals i.e. , PA, [facility], lab, RT, psych nurse, social sciences lecturer, oilfield plant and field operator, teacher, college service officer, onsite case manager)? Give summary @ -No Was smoking cessation discussed for >3mins.? @ -No Was critical care preformed (if so, how long)? @ -No Were there social determinants of health that impacted care today? How? (Homelessness, low income, unemployed, alcoholism, drug addiction, transportatio n, low edu. Level, literacy, decrease access to med. care, residential, rehab)? @ -No Was there de-escalation of care discussed even if they declined (Discuss DNR or withdrawal of care, Hospice)? DNR status @ -No What co-morbidities impacted this encounter? (DM, HTN, Smoking, COPD, CAD, Cancer, CVA, ARF, Chemo, Hep., AIDS, mental health diagnosis, sleep apnea, morbid obesity)? @ -None Was patient admitted / discharged? Hospital course, mention meds given and route, prescriptions, significant lab abnormalities, going to OR and other pertinent info. @ -Discharge patient has mild diverticulitis patient was discharged on clear liquid diet and Augmentin return for as discussed Undiagnosed new problem with uncertain prognosis? @ -No Drug Therapy requiring intensive monitoring for toxicity (Heparin, Nitro, Insulin, Cardizem)? @ -No Were any procedures done? @ -No Diagnosis/symptom? @ -Diverticulitis Acute, or Chronic, or Acute on Chronic? @ -Acute Uncomplicated (without systemic symptoms) or Complicated (systemic symptoms)? @ -Uncomplicated Side effects of treatment? @ -No Exacerbation, Progression, or Severe Exacerbation? @ -No Poses a threat to life or bodily function? How? (Chest pain, [place], [place], pneumonia, PE, COPD, DKA, ARF, appy, cholecystitis, CVA, Diverticulitis, Homicidal, Suicidal, threat to staff... and all critical care pts) @ -No - Lab Data Result diagrams: 11/05/23 11:38 11/05/23 11:38 Lab Results 11/05/23 11/05/23 11/05/23 Range/Units 11:38 11:38 11:38 WBC 7.1 (3.8-10.6) k/uL RBC 4.94 (4.30-5.90) m/uL Hgb 15.6 (13.0-17.5) gm/dL Hct 46.4 (39.0-53.0) % MCV 94.0 (80.0-100.0) fL MCH 31.6 (25.0-35.0) pg MCHC 33.6 (31.0-37.0) g/dL RDW 13.5 (11.5-15.5) % Plt Count 165 (150-450) k/uL MPV 10.2 Neutrophils % 53 % Lymphocytes % 29 % Monocytes % 5 % Eosinophils % 10 % Basophils % 1 % Neutrophils # 3.8 (1.3-7.7) k/uL Lymphocytes # 2.1 (1.0-4.8) k/uL Monocytes # 0.4 (0-1.0) k/uL Eosinophils # 0.7 (0-0.7) k/uL Basophils # 0.0 (0-0.2) k/uL Sodium 140 (137-145) mmol/L Potassium 4.7 (3.5-5.1) mmol/L Chloride 107 (98-107) mmol/L Carbon Dioxide 25 (22-30) mmol/L Anion Gap 8 mmol/L BUN 12 (9-20) mg/dL Creatinine 0.87 (0.66-1.25) mg/dL Est GFR (CKD-EPI)AfAm >90 (>60 ml/min/1.73 sqM) Est GFR (CKD-EPI)NonAf >90 (>60 ml/min/1.73 sqM) Glucose 120 H (74-99) mg/dL Plasma Lactic Acid Jeffrey 1.4 (0.7-2.0) mmol/L Calcium 9.9 (8.4-10.2) mg/dL Total Bilirubin 0.7 (0.2-1.3) mg/dL AST 66 H (17-59) U/L ALT 148 H (4-49) U/L Alkaline Phosphatase 78 (38-126) U/L Total Protein 8.2 (6.3-8.2) g/dL Albumin 5.2 H (3.5-5.0) g/dL Lipase 171 (23-300) U/L Disposition Clinical Impression: Diverticulitis Disposition: HOME SELF-CARE Condition: Stable Instructions (If sedation given, give patient instructions): Diverticulitis (ED), Diverticulitis Diet (ED) Additional Instructions: Please return to the Emergency Department if symptoms worsen or any other concerns. Prescriptions: Amoxic-Pot Clav 875-125Mg [Augmentin 875-125] 1 tab PO Q12HR #20 tab Is patient prescribed a controlled substance at d/c from ED?: No Referrals: Nicholas Jennings DO [Primary Care Provider] - 1-2 days Time of Disposition: 13:15
[2023-11-05 14:20] VITALS: PULSE 60
[2023-11-05 14:22] VITALS: BP 184/105
== END 2023-11-05 14:48 | disposition home or self-care (01) ==
LOC: EC 09:36
DX: K57.32 Diverticulitis of large intestine without perforation or abscess without bleeding (principal); F17.200 Nicotine dependence, unspecified, uncomplicated
CPT/HCPCS: 36415; 80053; 83605; 83690; 85025; 74177; 99284; 96360; 96361 ×2; Q9967

== ENCOUNTER → 2024-04-27 | Outpatient (CLI) | payer BC ==
--- NOTE | 2024-04-27 09:41 | XR ---
EXAMINATION TYPE: XR foot complete LT DATE OF EXAM: 04/27/2024 COMPARISON: NONE CLINICAL INDICATION: Male, 48 years old with history of M79.672 PAin left foot; TECHNIQUE: Three views are submitted. FINDINGS: Mild first MTP moderate hypertrophic arthropathy first DIP joint. No erosive changes. Moderate-sized calcaneal spurs. No acute fracture. No dislocation. IMPRESSION: 1. Moderate first DIP joint arthropathy with large spur along the medial margin joint space. No erosi ve changes. 2. Moderate calcaneal spurs. [facility], , 04/27/2024 9:38 AM
== END | disposition home or self-care (01) ==
LOC: RADXRMAIN 09:26
PROVIDERS: ATTEND Family Medicine
DX: M77.32 Calcaneal spur, left foot (principal); M19.072 Primary osteoarthritis, left ankle and foot

== ENCOUNTER 2024-04-28 08:30 | Day surgery (SDC) | payer BC ==
[2024-04-24 11:13] VITALS: BMI 34.0
[~2024-04-28 08:30] MED LIST: LIDOCAINE 1% (10MG/ML) FOR IV START INTRADERMA PRN
[2024-04-28 09:07] VITALS: TEMP 97.2
[2024-04-28] MEDS: IV FLUID CONTINUATION 1,000 ML IV ONE (09:12)
[2024-04-28] MEDS: LACTATED RINGERS 1,000 ML IV SCH (09:12)
[2024-04-28] MEDS ORDERED: LIDOCAINE 1% INJ 10MG/ML (20 ML MDV) ONE (09:48)
[2024-04-28] MEDS ORDERED: PROPOFOL 10 MG/ML 20 ML VIAL IV ONE (09:48)
--- NOTE | 2024-04-28 09:55 | P.GSHP ---
History of Present Illness H&P Date: 04/28/24 Chief Complaint: Colon cancer screening 48-year-old male here for colonoscopy. He has not had 1 previously. No bowel complaints. Patient did have an episode of diverticulitis in November and has had previous episodes in the past as well. No rectal bleeding. No family history of colon cancer. Past Medical History Past Medical History: GERD/Reflux, Hyperlipidemia, Hypertension, Skin Disorder Additional Past Medical History / Comment(s): diverticulosis-flare ups, hx eczema History of Any Multi-Drug Resistant Organisms: None Reported Past Surgical History: No Surgical Hx Reported Past Anesthesia/Blood Transfusion Reactions: Unable to Obtain Smoking Status: Current every day smoker, Heavy tobacco smoker - Past Family History Father Family Medical History: No Reported History Additional Family Medical History / Comment(s): Possibly heart stents Mother Family Medical History: Diabetes Mellitus, Hypertension Additional Family Medical History / Comment(s): Diet controlled DM Brother(s) Family Medical History: Myocardial Infarction ([place]) Additional Family Medical History / Comment(s): Had heart attack at 39 Medications and Allergies Home Medications Medication Instructions Recorded Confirmed Type Omeprazole Magnesium [PriLOSEC OTC] 20 mg PO DAILY 11/05/23 04/28/24 History Fenofibrate [Lofibra] 160 mg PO HS 04/24/24 04/28/24 History lisinopriL [Zestril] 20 mg PO HS 04/24/24 04/28/24 History Allergies Allergy/AdvReac Type Severity Reaction Status Date / Time No Known Allergies Allergy Verified 04/28/24 08:58 Surgical - Exam Vital Signs Temp Pulse Resp BP Pulse Ox 97.2 F L 63 16 124/74 96 04/28/24 09:01 04/28/24 09:01 04/28/24 09:01 04/28/24 09:01 04/28/24 09:01 Physical exam: General: Well-developed, well-nourished HEENT: Normocephalic, sclerae nonicteric Abdomen: Nontender, nondistended Extremities: No edema Neuro: Alert and oriented Assessment and Plan (1) Colon cancer screening Narrative/Plan: Will proceed with colonoscopy at this time. Current Visit: Yes Status: Acute Code(s): Z12.11 - ENCOUNTER FOR SCREENING FOR MALIGNANT NEOPLASM OF COLON SNOMED Code(s): 203358612
--- NOTE | 2024-04-28 10:23 | P.PCN ---
Date of Procedure: 04/28/24 Procedure(s) Performed: PREOPERATIVE DIAGNOSIS: Colon cancer screening POSTOPERATIVE DIAGNOSIS: Ascending colon polyp x 2, diverticulosis PROCEDURE: Colonoscopy with snare polypectomy and clip placement ANESTHESIA: MAC SURGEON: Ian Guallpa M.D. SPECIMENS: Ascending colon polyp ENDOSCOPIC PROCEDURE: The patient was placed on the endoscopy table in the left decubitus position. The Olympus colonoscope was inserted into the anus and passed under direct visualization to the base of the cecum. The appendiceal orifice was visualized. From that point the scope was slowly withdrawn inspecting all surfaces carefully. There was a polyp in the ascending colon just adjacent to the ileocecal valve. This measured 1.5 cm in size. This was removed using the snare with cautery technique. The base of the polyp was wide and 2 clips were placed there to help prevent postop bleeding or infection. About 5 cm distal to that was a slightly smaller polyp. This was removed using the snare with cautery technique as well. Specimens were sent to pathology for close examination. There were no abnormalities noted throughout the transverse descending sigmoid and rectum with the exception of sigmoid diverticulosis. Patient's prep was slightly suboptimal. Digital rectal examination was normal. The patient was taken to the recovery room in stable condition per anesthesia guidelines. RECOMMENDATIONS: Await biopsy results. Anticipate repeat colonoscopy 3 to 5 years. Will call patient with timing.
[2024-04-28 10:33] VITALS: BP 108/73; PULSE 64; RESP 14
== END 2024-04-28 11:02 | disposition home or self-care (01) ==
LOC: ORWHC2ENDO 08:30
PROVIDERS: ATTEND Surgery
DX: Z12.11 Encounter for screening for malignant neoplasm of colon (principal); D12.2 Benign neoplasm of ascending colon; K57.30 Diverticulosis of large intestine without perforation or abscess without bleeding; I10 Essential (primary) hypertension; E78.5 Hyperlipidemia, unspecified; K21.9 Gastro-esophageal reflux disease without esophagitis; F17.200 Nicotine dependence, unspecified, uncomplicated; Z79.899 Other long term (current) drug therapy
CPT/HCPCS: 88305; 45385; J2003; J2704